=== PATIENT | male | born 1955 | race Caucasian/White ===

== ENCOUNTER 2016-11-30 04:09 | Emergency (ER) | payer BC ==
[~2016-11-30] VITALS: Ht 172.7 cm; Wt 131.5 kg
[~2016-11-30 04:09] MED LIST: ACIPHEX20 MG PO; ALFUZOSIN HCL10 MG PO; AMOX TR-K CLV1 EAC3 PO; AVANDIA4 MG PO; CELECOXIB200 MG PO; CLINDAMYCIN HC300 MG PO; CRESTOR40 MG PO; DICYCLOMINE HCL20 MG PO; DILAUDID2 MG PO; FLOMAX0.4 MG PO; FLUTICASONE PRO16 GM BOTH NARES; GLUCOPHAGE1000 MG PO; GLUCOTROL XL10 MG PO; LANTUS 3 M100 UNITS1 SC; METFORMIN; PERCOCET 5/31 TABLET PO; RABEPRAZOLE SOD20 MG PO; RAMIPRIL10 MG PO; SINGULAIR10 MG PO; TRICOR48 MG PO; VITAMIN C; VITAMIN D; VITAMIN E; ZOFRAN4 MG PO
[2016-11-30 05:21] LABS: CHLORIDE 107 mEq/L (99-109); SODIUM 140 mEq/L (136-147)
[2016-11-30 05:23] LABS: GLUCOSE 181 mg/dL (70-99)
[2016-11-30 05:24] LABS: ANION GAP 10 MEQ/L (2-14)
[2016-11-30 05:25] LABS: TOTAL BILIRUBIN 0.5 mg/dL (0.0-1.0)
[2016-11-30 05:26] LABS: ALKALINE PHOSPHATASE 49 IU/L (3-129)
[2016-11-30 05:27] LABS: GFR ESTIMATE (CALCULATED) 55 mL/min/
[2016-11-30 05:28] LABS: UREA NITROGEN (BUN) 27 mg/dL (9-23)
[2016-11-30 05:30] LABS: LIPASE 33 U/L (1.0-51.0)
[2016-11-30 05:32] LABS: HEMATOCRIT 44.8 % (38.0-50.0); MCH 29.6 PG (29.0-34.0); MCHC 33.5 G/DL (30.0-36.0); MCV 88.4 FL (86-99); MEAN PLAT.VOLUME 10.8 uM^3 (9.0-12.4); PLATELET COUNT 185 K/uL (156-360); RBC DIS.WIDTH-SD 41.5 % (39-53); RED BLOOD COUNT 5.07 M/uL (4.00-5.50); WHITE BLOOD COUNT 7.8 K/uL (4.1-10.2)
[2016-11-30 06:31] LABS: ADD MIUA? YES; BILIRUBIN NEGATIVE; BLOOD LARGE; COLOR YELLOW ((YELLOW)); GLUCOSE (STRIP) >=500; KETONES NEGATIVE; LEUKOCYTES NEGATIVE; NITRITE NEGATIVE; PROTEIN (STRIP) 100; SPECIFIC GRAVITY 1.029 (1.000-1.030)
[2016-11-30 06:44] LABS: BACTERIA NONE SEEN /HPF; EPITHELIAL CELLS RARE /HPF; HYALINE CASTS 0-5 /LPF; MUCUS 4+ /LPF; RED BLOOD CELLS TNTC /HPF (0-5); UCUL ADDED? YES; WHITE BLOOD CELLS 0-5 /HPF (0-5)
[2016-11-30] MEDS ORDERED: ZOFRAN4 MG PO (06:54)
[2016-11-30] MEDS ORDERED: PERCOCET 5/31 TABLET PO (06:54)
[2016-11-30] MEDS ORDERED: FLOMAX0.4 MG PO (06:54)
[2016-11-30 07:16] VITALS: BP 142/70
== END 2016-11-30 07:47 | disposition home or self-care (01) ==
LOC: EME 04:09
DX: N20.1 Calculus of ureter (principal); R31.9 Hematuria, unspecified; K21.9 Gastro-esophageal reflux disease without esophagitis; I10 Essential (primary) hypertension; E78.5 Hyperlipidemia, unspecified; E11.9 Type 2 diabetes mellitus without complications; Z79.4 Long term (current) use of insulin; Z87.442 Personal history of urinary calculi
CPT/HCPCS: 74177; 80053; 81003; 83690; 85027; 87086; 99281; 99284; J2270; J2405; J7030